=== PATIENT | male | born 1975 | race Hispanic/Latino ===

== ENCOUNTER 2023-06-19 21:31 | Emergency (ER) | payer OTHER ==
[~2023-06-19] VITALS: Ht 172.7 cm; Wt 63.5 kg
[2023-06-19] MEDS ORDERED: ACETAMINOPHEN 500 MG TABLET PO ONE (22:00)
[2023-06-19 23:14] LABS: APPEARANCE,URINE CLOUDY (CLEAR); BILIRUBIN,URINE NEGATIVE (NEGATIVE); COLOR,URINE YELLOW (YELLOW); GLUCOSE, URINE (UA) NEGATIVE (NEGATIVE); KETONES,URINE 40 mg/dL (NEGATIVE); LEUKOCYTE ESTERASE ,URINE 500 Leu/uL (NEGATIVE); NITRATE,URINE 2+ (NEGATIVE); OCCULT BLOOD,URINE SMALL (NEGATIVE); PH,URINE 5.5 (5.0-8.0); PROTEIN,URINE 30 mg/dL (NEGATIVE)
[2023-06-19 23:16] LABS: BASOPHILS # (AUTO) 0.03 K/uL (0.00-0.20); BASOPHILS % (AUTO) 0.2 % (0.0-5.0); EOSINOPHILS # (AUTO) 0.04 K/uL (0.00-0.70); EOSINOPHILS % (AUTO) 0.3 % (0.0-8.0); HEMATOCRIT 36.4 % (42-54); IMMATURE GRANULOCYTE ABSOLUTE 0.07 K/uL (0-1); LYMPHOCYTES # (AUTO) 1.4 K/uL (1.0-4.8); MEAN CORPUSCULAR HEMOGLOBIN 32.3 pg (27.0-33.0); MEAN CORPUSCULAR HGB CONC 35.4 g/dL (32.0-36.0); MEAN CORPUSCULAR VOLUME 91.2 fL (79-99); MONOCYTES # (AUTO) 0.9 K/uL (0.1-1.0); MONOCYTES % (AUTO) 6.1 % (3.0-13.0); NEUTROPHILS # (AUTO) 12.7 K/uL (1.8-7.7); NEUTROPHILS % (AUTO) 83.9 % (40.0-77.0); PLATELET COUNT (AUTO) 241 K/uL (130-400); RED BLOOD CELL COUNT(AUTO) 3.99 MIL/uL (4.50-6.20); RED CELL DISTRIBUTION WIDTH 11.8 % (11.0-15.5); WHITE BLOOD COUNT (AUTO) 15.2 K/uL (4.8-10.8)
[2023-06-19] MEDS ORDERED: LIDOCAINE HCL 1% 20 ML VIAL ONE (23:17)
[2023-06-19 23:19] LABS: ADD UA MICROSCOPIC YES
[2023-06-19 23:21] LABS: BACTERIA,URINE MOD /HPF (None Seen); MUCUS,URINE MANY LPF (None Seen); WBC,URINE TNTC /HPF (0-1)
[2023-06-19] MEDS ORDERED: SULF1TAB42 PO (23:25)
[2023-06-19 23:27] VITALS: BP 124/65; PULSE 98; RESP 18; O2SAT 98
[2023-06-19 23:29] LABS: CREATININE 0.9 mg/dL (0.5-1.5); POTASSIUM 3.9 mmol/L (3.5-5.1)
[2023-06-19] MEDS ORDERED: CEFTRIAXONE 1G VIAL IM ONE (23:30)
[2023-06-19] MEDS ORDERED: AZITHROMYCIN 250 MG TABLET PO ONE (23:30)
[2023-06-19 23:33] LABS: ALBUMIN 3.4 g/dL (3.5-5.0); BILIRUBIN,TOTAL 0.4 mg/dL (0.2-1.0); TOTAL PROTEIN, SERUM 7.4 g/dL (6.0-8.3)
[2023-06-19 23:36] LABS: WBC MORPHOLOGY CONSISTENT W/DIFF
== END 2023-06-19 23:38 | disposition home or self-care (01) ==
LOC: EDH 21:31
DX: N34.2 Other urethritis (principal); F41.9 Anxiety disorder, unspecified; F32.A Depression, unspecified; F20.9 Schizophrenia, unspecified
CPT/HCPCS: 99285; 80053; 85025; 87077; 87088; 87186; 81001; 36415; 76870; 96372; J0696